=== PATIENT | female | born 1960 | race Caucasian/White ===

== ENCOUNTER → 2017-04-27 | Outpatient (CLI) | payer BC ==
--- NOTE | 2017-04-27 20:51 | RADRPT ---
Echocardiogram Report Patient Name: AURA AWAD Gender: Female Date: 1960 Study Date: 27-Apr-2017 Wireline Supervisor: Location: EKG Ref. Physician: EVERARDO MCKEON Quality: Technically Difficult Study Procedures: Transthoracic echocardiogram with complete 2D, M-Mode, and doppler examination. Indications: Limited Scleroderma. 2D/M Mode Doppler Measurement Value Normal Ranges Measurement Value Normal Ranges FS MM 44.0 % AV Peak Bam 1.2 m/sec LVIDd 2D 3.6 3.5 - 5.6 cm AV Peak PG 5.3 mmHg LVIDs 2D 2.0 2.1 - 4.1 cm LVOT Peak Bam 1.0 m/sec LVPWd 2D 1.1 0.6 - 1.1 cm LVOT Peak PG 4.4 mmHg IVSd 2D 1.1 0.6 - 1.1 cm MV E Peak Bam 0.8 m/sec AoR Diam 2D 2.1 2.0 - 3.7 cm MV A Peak Bam 0.6 m/sec EF 2D 76.0 50.0 - 65.0 % MV Decel Time 163 msec LA Dimen 2D 2.0 2.3 - 4.0 cm Lateral E` 0.1 m/sec Septal E` 0.1 m/sec E/E` 6.7 TR Peak Bam 2.3 m/sec TR Peak PG 21.0 mmHg RVSP 24.0 mmHg Findings Left Ventricle: Normal left ventricular systolic function. Normal left ventricular cavity size. Mild concentric left ventricular hypertrophy. Ejection fraction is visually estimated at 60 %. Right Ventricle: Normal right ventricular size. Normal right ventricular systolic function. Left Atrium: The left atrium is normal in size. Right Atrium: The right atrium is normal in size. Mitral Valve: Mild mitral leaflet calcification. Mild mitral annular calcification. Trace mitral regurgitation. Aortic Valve: Normal appearance of the aortic valve. No significant aortic stenosis or insufficiency. Tricuspid Valve: Normal appearance of the tricuspid valve. Estimated peak PA systolic pressure 24 mmHg. There is trace tricuspid regurgitation. Pulmonic Valve: Pulmonic valve not well visualized. There is trace pulmonic regurgitation. Pericardium: Normal pericardium with no significant pericardial effusion. Aorta: Normal aortic root. IVC: Normal size and normal respiratory collapse consistent with normal right atrial pressure. Conclusions 1.Normal left ventricular systolic function. Normal left ventricular cavity size. Mild concentric left ventricular hypertrophy. Ejection fraction is visually estimated at 60 %. 2.Normal right ventricular size. Normal right ventricular systolic function. 3.The left atrium is normal in size. 4.The right atrium is normal in size. 5.No significant valvular stenosis or regurgitation seen. 6.Normal pericardium with no significant pericardial effusion. Electronically Signed By: Shade Willams 27-Apr-2017 20:51:04 -[id number] Patient Name: AURA AWAD Study Date: 27-Apr-[id number]
== END | disposition home or self-care (01) ==
LOC: EKG 09:50
PROVIDERS: ATTEND Specialist
DX: M34.9 Systemic sclerosis, unspecified (principal)
CPT/HCPCS: 93306

== ENCOUNTER → 2017-05-04 | Outpatient (CLI) | payer BC | END | disposition home or self-care (01) | LOC: PUL 09:35 | PROVIDERS: ATTEND Specialist | DX: M34.89 Other systemic sclerosis (principal) | CPT/HCPCS: 94010; 94726; 94729 ==